=== PATIENT | female | born 1965 | race Caucasian/White ===

== ENCOUNTER → 2017-06-23 | Outpatient (CLI) | payer OTHER | LOC: LAB SHORT 18:53 → LAB 18:53 | DX: L98.9 Disorder of the skin and subcutaneous tissue, unspecified (principal) | CPT/HCPCS: 87070; 87075; 87076; 87185; 87205 ==

== ENCOUNTER 2020-09-30 13:50 | Emergency (ER) | payer OTHER ==
[~2020-09-30] VITALS: Ht 157.5 cm; Wt 54.4 kg
[2020-09-30] MEDS ORDERED: LORA.5 PO (19:22)
== END 2020-09-30 19:40 | disposition home or self-care (01) ==
LOC: ER 13:50
DX: Z00.00 Encounter for general adult medical examination without abnormal findings (principal); F17.290 Nicotine dependence, other tobacco product, uncomplicated
CPT/HCPCS: 96372; 99283-25; J2060

== ENCOUNTER 2024-11-24 08:51 | Observation (INO) | payer OTHER ==
[~2024-11-24] VITALS: Ht 162.6 cm; Wt 58.1 kg
[2024-11-24] VITALS (22 sets, daily range): BP systolic 88–159; BP diastolic 50–90
[~2024-11-24 08:51] MED LIST: LORA.5 PO
[2024-11-24] MEDS ORDERED: LORAZEPAM0.5 MG PO (09:55)
[2024-11-24] MEDS ORDERED: VENL150ER PO (09:55)
[2024-11-24] MEDS ORDERED: FentaNYL Citrate 50 MCG/ML 2 ML Injection IV ONE (10:00)
[2024-11-24] MEDS ORDERED: Ondansetron HCl 2 MG / ML 2ML Vial IV ONE (10:00)
[2024-11-24 10:52] LABS: BASOPHILS ABSOLUTE AUTO 0.04 K/mm3 (0.00-0.23); BASOPHILS PERCENT AUTO 0 % (0-2); EOSINOPHILS ABSOLUTE AUTO 0.00 K/mm3 (0.00-0.68); EOSINOPHILS PERCENT AUTO 0 % (0-6); Hematocrit 46.1 % (33.0-51.0); Hemoglobin 15.2 g/dL (11.5-16.0); IMMATURE GRAN ABSOLUTE AUTO 0.10 K/mm3 (0.00-0.10); IMMATURE GRAN PERCENT AUTO 1 % (0-1); LYMPHOCYTES ABSOLUTE AUTO 0.87 K/mm3 (0.84-5.20); LYMPHOCYTES PERCENT AUTO 5 % (21-46); MONOCYTES ABSOLUTE AUTO 1.11 K/mm3 (0.16-1.47); MONOCYTES PERCENT AUTO 6 % (4-13); Mean Corpuscular HGB Conc 33.0 g/dL (31.5-36.5); Mean Corpuscular Volume 83 fL (80-100); NEUTROPHILS ABSOLUTE AUTO 16.93 K/mm3 (1.96-9.15); NEUTROPHILS PERCENT AUTO 89 % (41-73); NRBC ABSOLUTE 0.00 K/mm3 (0.00-0.02); NRBC Auto 0.0 /100 WBC (0.0-0.2); Platelet Count 252 K/mm3 (150-400); RDW Coefficient Variation 13.2 % (11.7-14.2); RDW Standard Deviation 39.5 fL (35.1-46.3)
[2024-11-24] MEDS ORDERED: HYDROmorphone HCl/Pf 1MG SYR IV ONE (10:55)
[2024-11-24 11:18] LABS: Alanine Aminotransfer (ALT/SGP 22.0 U/L (12-78); Albumin, Blood 3.9 g/dL (3.4-5.0); Albumin/Globulin Ratio 0.9 (0.8-1.8); Anion Gap 12.0 mmol/L (3-11); Aspartate Aminotrans (AST/SGOT 20.0 U/L (12-37); Bilirubin, Total 0.8 mg/dL (0.1-1.0); Blood Urea Nitrogen 11.0 mg/dL (8-24); CO2, Blood 24.0 mmol/L (21-32); Calcium, Blood 9.3 mg/dL (8.5-10.1); Chloride, Blood 101.0 mmol/L (98-108); Creatinine, Blood 0.89 mg/dL (0.40-1.00); Globulin, Blood 4.4 g/dL (2.2-4.0); Glucose, Blood 138.0 mg/dL (70-99); Potassium, Blood 3.6 mmol/L (3.5-5.5); Sodium, Blood 133.0 mmol/L (136-145); Total Protein, Blood 8.3 g/dL (6.4-8.2)
[2024-11-24] MEDS ORDERED: NS 1,000 ML IV SCH ×2 (11:40→11:55)
[2024-11-24] MEDS ORDERED: Ampicillin Sod/Sulbactam Sod 3 GM in NS 100 ML IV ONE (12:15)
[2024-11-24] MEDS ORDERED: Ondansetron HCl 2 MG / ML 2ML Vial IV PRN (12:20)
[2024-11-24] MEDS ORDERED: HYDROmorphone HCl/Pf 1MG SYR IV PRN (12:25)
[2024-11-24] MEDS ORDERED: Ketorolac Tromethamine 15mg Vial IV PRN (12:30)
[2024-11-24] MEDS ORDERED: Bupivacaine 0.5% HCl 5 MG/ML 30MLVIAL ONE (12:35)
[2024-11-24] MEDS ORDERED: Rocuronium Bromide 10 MG/ML 5ML Injection IV ONE (12:56)
[2024-11-24] MEDS ORDERED: Midazolam HCl 1MG / ML 2ML Vial ONE (12:57)
[2024-11-24] MEDS ORDERED: FentaNYL Citrate 50 MCG/ML 2 ML Injection ONE ×2 (12:57→14:27)
[2024-11-24] MEDS ORDERED: Ondansetron HCl 2 MG / ML 2ML Vial ONE (13:05)
[2024-11-24] MEDS ORDERED: Dexamethasone Sod Phos 10 MG/ML 1ML VIAL ONE (13:05)
[2024-11-24] MEDS ORDERED: Phenylephrine HCl 100 MCG/ML-NS 10MLSYR (1MG/10ML) ONE (13:15)
[2024-11-24] MEDS ORDERED: Sugammadex Sodium 200 MG/2ML SDV (100 MG/ML) ONE (13:49)
[2024-11-24] MEDS ORDERED: Ketorolac Tromethamine 30mg Vial ONE (14:29)
--- NOTE | 2024-11-24 15:40 | NUR ---
Pt arrived to [address] from [facility], she is awake, a/ox4, pleasant and cooperative with care, follows commands well, spouce at bedside, v.s. stable, afebrile, sats are 99% on 2 liters 02 via n/c, turned down to 1 liter, lungs are clear t/o, resp even and unlabored, hrr, no edema noted, ppp+2, cap refill <3 sec, v.s. stable, afebrile, piv to lac site is clear and patent, lap sites to abd are clear, no oozing or swelling, hung lr at 100mls/hr, per orders, maew, was able to stand and tx to bed with sba, oriented to room layout and call system, call light in reach.
[2024-11-24] MEDS ORDERED: Ampicillin Sod/Sulbactam Sod 3 GM in NS 100 ML IV SCH (18:00)
--- NOTE | 2024-11-24 18:17 | NUR ---
pt doing ok, having some pain this evening medicated per emar, spouce brought food in for her, she is tolerating, no acute changes this shift, call light in reach.
[2024-11-25 03:43] VITALS: BP 92/64
--- NOTE | 2024-11-25 05:13 | NUR ---
NOC SUMMARY- PT PAIN MANAGED WELL. PT HAS BEEN TOLERATING PO AND VOIDING. PT HAS BEEN RESTING IN NO DISTRESS. PT LAP SITES ARE C/D/I. NO NEW ISSUES NOTED. CALL LIGHT IN REACH.
[2024-11-25 07:12] VITALS: BP 90/64
[2024-11-25] MEDS ORDERED: Enoxaparin 40 MG/0.4 ML SYR SC SCH (09:00)
[2024-11-25] MEDS ORDERED: Acetaminophen650 M1 PO (10:15)
[2024-11-25] MEDS ORDERED: AMOCLA875 PO (10:16)
[2024-11-25] MEDS ORDERED: OXYC5 PO (10:16)
--- NOTE | 2024-11-25 11:49 | NUR ---
DISCHARGE POD 1 LAP APPY, LAP SITES ARE C/D/I. PAIN MANAGED WITH PRESCRIBED OXICODONE. PATIENT SPOUSE PICKED UP PRESCRIPTIONS PRIOR TO ARRIVAL. ALL INSTRUCTIONS READ AND SIGNED UNDERSTANDING. IV TAKEN OUT INTACT. AND PATIENT LEAVES VIA PRIVATE CAR.
== END 2024-11-25 11:05 | disposition home or self-care (01) ==
LOC: ER 08:51 → SURS 08:52
PROVIDERS: Student in an Organized Health Care Education/Training Program; ADMIT Surgery
PROC: 0DTJ4ZZ Resection of Appendix, Percutaneous Endoscopic Approach (ICD-10-PCS; principal; 2024-11-24 13:05)
DX: K35.30 Acute appendicitis with localized peritonitis, without perforation or gangrene (principal); K66.0 Peritoneal adhesions (postprocedural) (postinfection); N73.6 Female pelvic peritoneal adhesions (postinfective); F17.290 Nicotine dependence, other tobacco product, uncomplicated; Z79.899 Other long term (current) drug therapy; Z98.51 Tubal ligation status
CPT/HCPCS: 36415; 74177; 80053; 83605; 83690; 85025; 87040; 88304; 96374-59; 96375; 99285-25; A9270; J0295; J1100; J1171; J1650; J1885; J2250; J2371; J2405; J2704; J3010; J7030; J7120; Q9967